=== PATIENT | female | born 1995 | race African-American/Black ===

== ENCOUNTER 2021-11-09 08:03 | Emergency (ER) | payer OTHER ==
[2021-11-09 08:17] VITALS: BP 128/73
--- NOTE | 2021-11-09 08:24 | ED Physician Documentation ---
PD HPI URI - Stated complaint Stated Complaint: EAR PX, SINUS PRESSURE, SORE THROAT - Chief complaint Chief Complaint: Heent - History obtained from History obtained from: Patient - History of Present Illness Timing - onset: How many days ago Timing duration: Days Timing details: Gradual onset, Still present (Congestion sore throat and mild cough. Covid tested negative. Was improving after several days and now primarily sinus symptoms with purulent drainage and frontal headache and ear pressure. Sore throat mostly in mornings. Inhibiting good PO intake.), Waxing and waning Associated symptoms: Ear pain, Nasal congestion, Sinus pain, Sore throat. No: Fever, Swollen nodes, Dry cough, NVD Contributing factors: No: Sick contact, Unimmunized Worsened by: Other (swallowing increases throat pain. Position change worsens ear/sinus pressure.) Similar symptoms before: Has not had sx before Recently seen: Clinic ([facility] with negative COVID test 4 days ago.) Review of Systems Constitutional: reports: Myalgias. denies: Fever, Chills Nose: reports: Rhinorrhea / runny nose, Congestion, Sinus pressure / pain Throat: reports: Sore throat Cardiac: denies: Chest pain / pressure Respiratory: denies: Dyspnea, Cough GI: denies: Abdominal Pain, Nausea, Vomiting, Diarrhea Neurologic: denies: Generalized weakness (she feels she is dehydrated from less PO intake the past 3 days. Still urinating fairly normal.), Near syncope PD PAST MEDICAL HISTORY - Past Medical History Cardiovascular: None Respiratory: None Endocrine/Autoimmune: None HEENT: None - Present Medications Home Medications: Ambulatory Orders Medication Instructions Recorded Confirmed Amoxicillin 500 mg PO TID #21 cap 11/09/21 Cetirizine [ZyrTEC] 10 mg PO BID #15 tablet 11/09/21 dexAMETHasone [Decadron] 4 mg PO DAILY #5 tablet 11/09/21 - Allergies Allergies/Adverse Reactions: Allergies Allergy/AdvReac Type Severity Reaction Status Date / Time No Known Drug Allergies Allergy Verified 11/09/21 08:17 PD ED PE NORMAL - Vitals Vital signs reviewed: Yes - General General: Alert and oriented X 3, Well developed/nourished - HEENT HEENT: Ears normal (fluid behind TMs), Pharynx benign (enlarged tonsils but not erythematous and no exudate. ) - Neck Neck: Supple, no meningeal sign, No adenopathy - Cardiac Cardiac: RRR, No murmur - Respiratory Respiratory: Clear bilaterally - Derm Derm: Normal color, Warm and dry Results - Vitals Vitals: Vital Signs - 24 hr 11/09/21 08:11 Temperature 36.6 C Heart Rate 69 Respiratory 15 Rate Blood Pressure 128/73 O2 Saturation 100 Oxygen O2 Source Room air PD MEDICAL DECISION MAKING - ED course Complexity details: considered differential (Sounds initially like URI then improved and now mainly sinus symptoms. Consider acute bacterial sinusitis.), d/w patient Departure - Departure Disposition: 01 Home, Self Care Clinical Impression: Acute sinusitis Qualifiers: Sinusitis location: unspecified location Recurrence: non-recurrent Qualified Code(s): J01.90 - Acute sinusitis, unspecified Condition: Stable Record reviewed to determine appropriate education?: Yes Instructions: ED Sinusitis Abx Tx Follow-Up: [facility] [Provider Group] Prescriptions: Amoxicillin 500 mg PO TID #21 cap dexAMETHasone [Decadron] 4 mg PO DAILY #5 tablet Cetirizine [ZyrTEC] 10 mg PO BID #15 tablet Comments: Small frequent fluids. Tylenol every 4-6 hours if needed for pain. Add ibuprofen if needed as well. Decadron steroid anti-inflammatory for inflammation of the sinuses. Cetirizine twice daily for a week for congestion. Amoxicillin 3 times a day for a week for potential bacterial infection causing the symptoms. I would anticipate improvement in symptoms within 2 to 3 days and resolution by 3 to 5 days. Recheck if not better in that timeframe. In particular if not able to increase your oral intake well. The throat pain should decrease with the initiation of the above medicines and be improving even through today. I transmitted your prescriptions to [facility] pharmacy. Discharge Date/Time: 11/09/21 09:19
[2021-11-09] MEDS ORDERED: AMOXICILLIN 250 MG CAPSULE PO STA (08:44)
[2021-11-09] MEDS ORDERED: diphenhydrAMINE ELIXIR 25 MG/10 ML UDC PO STA (08:44)
[2021-11-09] MEDS ORDERED: DEXAMETHASONE 10 MG/ML VIAL PO STA (08:44)
[2021-11-09] MEDS ORDERED: ACETAMINOPHEN 325 MG TABLET PO STA (08:45)
== END 2021-11-09 09:19 | disposition home or self-care (01) ==
LOC: ED 08:03
DX: J01.90 Acute sinusitis, unspecified (principal)
CPT/HCPCS: 99282; 99283; A9270